=== PATIENT | male | born 1990 | race Caucasian/White ===

== ENCOUNTER 2021-05-05 13:01 | Emergency (ER) | payer MEDICAID ==
[~2021-05-05] VITALS: Ht 177.8 cm; Wt 85.0 kg
[2021-05-05 13:20] LABS: BASOPHILS % 0.2 % (0.0-2.0); EOSINOPHILS % 0.8 % (0.0-5.0); HEMOGLOBIN. 17.8 g/dL (14.0-18.0); LYMPHOCYTES % 15.8 % (20.0-50.0); MEAN CORPUSCULAR VOLUME 99.5 fL (80.0-94.0); MEAN PLATELET VOLUME 7.7 fl (7.4-10.4); MONOCYTES % 7.5 % (2.0-8.0); NEUTROPHILS % 75.7 % (40.0-76.0); PLATELET 178 x1000/uL (130-400); RED BLOOD CELL COUNT 5.22 mill/uL (4.7-6.1); RED CELL DISTRIBUTION WIDTH 15.1 % (11.6-14.6)
[2021-05-05 13:25] VITALS: BP 126/81
[2021-05-05 13:26] LABS: CHLORIDE 102 mEq/L (98-107)
[2021-05-05 13:44] LABS: ETHANOL BLOOD 501 mg/dL
[2021-05-05] MEDS ORDERED: SODIUM CHLORIDE 0.9% 1,000 ML IV ONE (16:00)
== END 2021-05-05 19:29 | disposition left against medical advice (07) ==
LOC: EDBD → ER 13:01 → EDBD 13:01 → ER 19:29
DX: G93.40 Encephalopathy, unspecified (principal); F10.129 Alcohol abuse with intoxication, unspecified; R51.9 Headache, unspecified; Y90.8 Blood alcohol level of 240 mg/100 ml or more
CPT/HCPCS: 36415; 70450; 80048; 80307; 80320; 80329; 85025; 99284; J7030; 80305; G0480

== ENCOUNTER 2021-05-06 04:57 | Emergency (ER) | payer MEDICAID ==
[~2021-05-06] VITALS: Ht 177.8 cm; Wt 82.0 kg
[2021-05-06 05:01] VITALS: BP 136/92
[2021-05-06] MEDS ORDERED: LORAZEPAM 2MG/ML CPJ IV STA (05:37)
[2021-05-06] MEDS ORDERED: CHLORDIAZEPOXIDE 25MG CAPSULE PO ONE (06:15)
[2021-05-06 06:27] LABS: CHLORIDE 97 mEq/L (98-107)
[2021-05-06 06:32] LABS: ETHANOL BLOOD 219 mg/dL
[2021-05-06 06:33] LABS: BASOPHILS % 0.2 % (0.0-2.0); EOSINOPHILS % 0.5 % (0.0-5.0); HEMATOCRIT. 45.6 % (42.0-52.0); MEAN CORPUSCULAR HEMOGLOBIN 34.3 pg (28.0-32.0); MEAN CORPUSCULAR VOLUME 97.7 fL (80.0-94.0); MEAN PLATELET VOLUME 7.8 fl (7.4-10.4); MONOCYTES % 7.5 % (2.0-8.0); NEUTROPHILS % 68.8 % (40.0-76.0); PLATELET 182 x1000/uL (130-400); RED BLOOD CELL COUNT 4.66 mill/uL (4.7-6.1); RED CELL DISTRIBUTION WIDTH 14.3 % (11.6-14.6)
== END 2021-05-06 11:39 | disposition left against medical advice (07) ==
LOC: ER 04:57
DX: F10.239 Alcohol dependence with withdrawal, unspecified (principal); F10.229 Alcohol dependence with intoxication, unspecified; Y90.7 Blood alcohol level of 200-239 mg/100 ml
CPT/HCPCS: 36415; 80053; 80320; 85025; 99283; G0480

== ENCOUNTER 2021-05-06 14:06 | Emergency (ER) | payer MEDICAID ==
[~2021-05-06] VITALS: Ht 175.3 cm; Wt 80.0 kg
[2021-05-06] MEDS ORDERED: LORAZEPAM 2MG/ML CPJ IV STA (15:13)
[2021-05-06] MEDS ORDERED: SODIUM CHLORIDE 0.9% 1,000 ML IV ONE (15:15)
[2021-05-06 16:17] LABS: BASOPHILS % 0.3 % (0.0-2.0); EOSINOPHILS % 0.4 % (0.0-5.0); HEMATOCRIT. 44.2 % (42.0-52.0); HEMOGLOBIN. 15.3 g/dL (14.0-18.0); LYMPHOCYTES % 27.3 % (20.0-50.0); MEAN CORPUSCULAR HEMOGLOBIN 33.9 pg (28.0-32.0); MEAN CORPUSCULAR VOLUME 98.2 fL (80.0-94.0); MEAN PLATELET VOLUME 7.6 fl (7.4-10.4); MONOCYTES % 7.7 % (2.0-8.0); NEUTROPHILS % 64.3 % (40.0-76.0); PLATELET 161 x1000/uL (130-400); RED BLOOD CELL COUNT 4.51 mill/uL (4.7-6.1); RED CELL DISTRIBUTION WIDTH 14.4 % (11.6-14.6)
[2021-05-06 16:20] LABS: CHLORIDE 98 mEq/L (98-107)
[2021-05-06] MEDS ORDERED: FOLIC ACID/VITAMIN B COMP W-C TABLET PO SCH (17:15)
[2021-05-06] MEDS ORDERED: KCL 10MEQ/50ML PREMIX 100 ML IV SCH (17:15)
[2021-05-06 17:20] LABS: ETHANOL BLOOD 333 mg/dL
[2021-05-06] MEDS ORDERED: LORAZEPAM 2MG/ML CPJ IV ONE (20:15)
[2021-05-06] MEDS ORDERED: FOLIC ACID 1 MG, THIAMINE HCL 100 MG, MVI, ADULT NO.1 10 ML in DEXTROSE 5% WATER 1,000 ML IV ONE (20:15)
[2021-05-06] MEDS ORDERED: FOLIC ACID 1 MG, THIAMINE HCL 100 MG, MVI, ADULT NO.1 10 ML in DEXTROSE 5% WATER 1,000 ML IV SCH (20:30)
[2021-05-07 08:00] VITALS: BP 142/73
== END 2021-05-07 08:30 | disposition left against medical advice (07) ==
LOC: ER 14:06 → CANBEDREQ 05-07 09:18
DX: F10.229 Alcohol dependence with intoxication, unspecified (principal); F10.221 Alcohol dependence with intoxication delirium; Y90.8 Blood alcohol level of 240 mg/100 ml or more; F17.210 Nicotine dependence, cigarettes, uncomplicated; F41.9 Anxiety disorder, unspecified; F32.9 Major depressive disorder, single episode, unspecified; Z20.822 Contact with and (suspected) exposure to COVID-19
CPT/HCPCS: 36415; 80053; 80320; 85025; 87426; 96361; 96365; 96367; 96375; 99291; J2060; J3411; J3480; J3490; J7030; J7040; J7070; Z7610; G0480

== ENCOUNTER 2022-05-24 10:17 | Emergency (ER) | payer MEDICAID ==
[~2022-05-24] VITALS: Ht 172.7 cm; Wt 77.0 kg
[2022-05-24] MEDS ORDERED: FOLIC ACID 1 MG, THIAMINE HCL 100 MG, MVI, ADULT NO.1 10 ML in DEXTROSE 5% WATER 1,000 ML IV ONE ×4 (10:45)
[2022-05-24] MEDS ORDERED: ONDANSETRON HCL 4MG/2ML INJ IV ONE (10:45)
[2022-05-24 13:19] VITALS: BP 112/82
== END 2022-05-24 14:42 | disposition home or self-care (01) ==
LOC: ER 10:17
DX: F10.229 Alcohol dependence with intoxication, unspecified (principal); F32.A Depression, unspecified; F41.9 Anxiety disorder, unspecified; Y90.9 Presence of alcohol in blood, level not specified
CPT/HCPCS: 96365; 96375; 99284; J2405; J3411; J3490; J7070

== ENCOUNTER 2022-08-10 19:20 | Emergency (ER) | payer MEDICAID, OTHER ==
[~2022-08-10] VITALS: Ht 182.9 cm; Wt 82.0 kg
[2022-08-10] MEDS ORDERED: SODIUM CHLORIDE 0.9% 1,000 ML IV ONE (22:15)
[2022-08-10 23:08] LABS: BASOPHILS % 0.2 % (0.0-2.0); EOSINOPHILS % 0.6 % (0.0-5.0); HEMATOCRIT. 40.7 % (42.0-52.0); HEMOGLOBIN. 14.1 g/dL (14.0-18.0); LYMPHOCYTES % 20.3 % (20.0-50.0); MEAN CORPUSCULAR HEMOGLOBIN 34.1 pg (28.0-32.0); MEAN CORPUSCULAR VOLUME 98.2 fL (80.0-94.0); MEAN PLATELET VOLUME 7.3 fl (7.4-10.4); MONOCYTES % 12.2 % (2.0-8.0); NEUTROPHILS % 66.7 % (40.0-76.0); PLATELET 124 x1000/uL (130-400); RED BLOOD CELL COUNT 4.14 mill/uL (4.7-6.1)
[2022-08-10 23:15] LABS: CHLORIDE 99 mEq/L (98-107)
[2022-08-10 23:28] LABS: ETHANOL BLOOD 306 mg/dL
[2022-08-11] VITALS: BP 130/75
== END 2022-08-11 02:02 | disposition left against medical advice (07) ==
LOC: ER 19:20
DX: F10.129 Alcohol abuse with intoxication, unspecified (principal); Y90.8 Blood alcohol level of 240 mg/100 ml or more
CPT/HCPCS: 36415; 80053; 80320; 85025; 96360; 99283; J7030; G0480

== ENCOUNTER 2022-08-11 02:38 | Emergency (ER) | payer MEDICAID ==
[~2022-08-11] VITALS: Ht 172.7 cm; Wt 77.0 kg
[2022-08-11] MEDS ORDERED: LORAZEPAM 2MG/ML CPJ IV STA (03:47)
[2022-08-11] MEDS ORDERED: FOLIC ACID 1 MG, THIAMINE HCL 100 MG, MVI, ADULT NO.1 10 ML in DEXTROSE 5% WATER 1,000 ML IV ONE ×4 (04:00)
[2022-08-11] MEDS ORDERED: SODIUM CHLORIDE 0.9% 1,000 ML IV ONE (04:00)
[2022-08-11 04:16] LABS: HEMOGLOBIN. 13.7 g/dL (14.0-18.0); MEAN CORPUSCULAR HEMOGLOBIN 34.5 pg (28.0-32.0); MEAN CORPUSCULAR VOLUME 98.2 fL (80.0-94.0); MEAN PLATELET VOLUME 7.3 fl (7.4-10.4); PLATELET 107 x1000/uL (130-400); RED BLOOD CELL COUNT 3.97 mill/uL (4.7-6.1); RED CELL DISTRIBUTION WIDTH 15.4 % (11.6-14.6)
[2022-08-11 04:27] LABS: CHLORIDE 100 mEq/L (98-107)
[2022-08-11 04:35] LABS: ETHANOL BLOOD 208 mg/dL
[2022-08-11 06:11] LABS: PLATELET ESTIMATE NORMAL
[2022-08-11] MEDS ORDERED: MAGNESIUM OXIDE 400MG TABLET PO SCH (09:00)
[2022-08-11 10:15] VITALS: BP 138/86
== END 2022-08-11 10:24 | disposition left against medical advice (07) ==
LOC: ER 02:53
DX: F10.129 Alcohol abuse with intoxication, unspecified (principal); I49.9 Cardiac arrhythmia, unspecified; Y90.8 Blood alcohol level of 240 mg/100 ml or more
CPT/HCPCS: 36415; 71045; 80053; 80320; 83735; 85025; 93005; 96365; 96375; 99285; J2060; J3411; J3490; J7030; J7070; Z7610; G0480